=== PATIENT | female | born 1970 | race Caucasian/White ===

== ENCOUNTER 2018-01-16 14:14 | Emergency (ER) | payer BC, OTHER ==
[2018-01-16 14:38] VITALS: BP 103/65
--- NOTE | 2018-01-16 14:52 | UC ---
Throat Pain/Nasal John HPI - HPI Summary HPI Summary: C/O split in the side of the lips over the last 10 days. Worse last 2 days with lymph node. No fevers. Smokers cough. Some dental pain. - History of Current Complaint Chief Complaint: UCGeneralIllness Stated Complaint: ORAL COMPLAINT,SWOLLEN LYMPH NODES Time Seen by Provider: 01/16/18 14:41 Hx Obtained From: Patient Hx Last Menstrual Period: 12/28/17 ?: No Onset/Duration: Gradual Onset, Worse Since - last 2 days. Severity: Moderate Pain Intensity: 4 Cough: Nonproductive Associated Signs & Symptoms: Positive: Rash - redness with cracking right lateral mouth. Negative: Dysphagia, Hoarseness, Sinus Discomfort, Nasal Discharge, Fever - Allergies/Home Medications Allergies/Adverse Reactions: Allergies Allergy/AdvReac Type Severity Reaction Status Date / Time Penicillins Allergy Unknown Unknown Verified 01/16/18 14:38 Reaction Details codeine AdvReac Intermediate GI Upset Verified 01/16/18 14:38 PMH/Surg Hx/FS Hx/Imm Hx Previously Healthy: Yes - Surgical History Surgical History: Yes Surgery Procedure, Year, and Place: L knee x 2, R knee, Ear tubes 2003 - Family History Known Family History: Positive: Cardiac Disease Negative: Hypertension, Diabetes - Social History Occupation: Employed Full-time Lives: Alone Alcohol Use: Occasionally Substance Use Type: None Smoking Status (MU): Light Every Day Tobacco Smoker Type: Cigarettes Amount Used/How Often: 1/2 ppd Length of Time of Smoking/Using Tobacco: since age 28 Have You Smoked in the Last Year: Yes Cessation Counseling: Patient Advised to Stop Review of Systems Skin: Rash - at the right corner of the mouth ENT: Ear Ache - chronic Respiratory: Cough - occasional non-productive Neurological: Headache - sinus headache Is Patient Immunocompromised?: No All Other Systems Reviewed And Are Negative: Yes Physical Exam Triage Information Reviewed: Yes Appearance: Well-Appearing, No Pain Distress, Well-Nourished Vital Signs: Initial Vital Signs Temp 99.6 F 01/16/18 14:29 Pulse 86 01/16/18 14:29 Resp 16 01/16/18 14:29 BP 103/65 01/16/18 14:29 Pulse Ox 98 01/16/18 14:29 Vital Signs Reviewed: Yes Eyes: Positive: Conjunctiva Clear ENT: Positive: Nasal congestion, Other - erythema with skin cracking on the right corner of the mouth.. Negative: TMs normal - Perforation right ear and tube in left ear. Neck: Positive: Enlarged Nodes @ - shotty submandibular nodes. Respiratory: Positive: Lungs clear Cardiovascular: Positive: Murmur:Sys:Grade _?_/ - 2/6 murmur at the apex and aortic area. Early systolic click aortic area. Musculoskeletal Exam: Normal Neurological Exam: Normal Psychological Exam: Normal Skin Exam: Normal Throat Pain/Nasal Course/Dx - Differential Dx/Diagnosis Differential Diagnosis/HQI/PQRI: Pharyngitis, Tonsillitis, URI Provider Diagnoses: Angular Cheilitis. Allergic rhinitis. Smoking Discharge - Sign-Out/Discharge Documenting (check all that apply): Discharge - Discharge Plan Condition: Stable Disposition: HOME Prescriptions: Ketoconazole 2 % CREAM (NF) [Nizoral 2% CREAM (NF)] 1 applic TOPICAL BID #15 gm Patient Education Materials: Skin Yeast Infection (ED), Allergic Rhinitis (ED) Referrals: Nirali Regalado MD [Primary Care Provider] - Additional Instructions: NEILMED SINUS RINSE: CHECK OUT AT [facility] Saline nasal wash helps with mucous, allergies and congestion. It can be used up to twice a day or only as needed. Use lukewarm tap water. It does not have to be sterilized or distilled water. Do 1/3 on each side and snort out of both nostrils. Repeat the process with 1/6 of the bottle on each side with snorting in between to finish the solution in the bottle Smoking Cessation Tricks. 1. Cut down by 1 cigarette per day every 2-3 days. Write the number of smokes for that day on the calendar. 2. Identify triggers to smoking: after meals, on the phone, in the car, with coffee, on breaks at work, etc. 3. Formulate a plan with a behavior to replace the smoking. Fireballs in the car , doodle pad on the phone, flavored creamer for the coffee, go for a walk after a meal or on break at work. 4. For stress smokes do deep breathing relaxation. Breath deep in through the nose hold the breath in for a few seconds then breath out slowly through the mouth. - Billing Disposition and Condition Condition: STABLE Disposition: HOME
== END 2018-01-16 15:20 | disposition home or self-care (01) ==
LOC: UCCORT 14:14
DX: K13.0 Diseases of lips (principal); J30.9 Allergic rhinitis, unspecified; F17.210 Nicotine dependence, cigarettes, uncomplicated; Z88.5 Allergy status to narcotic agent; Z88.0 Allergy status to penicillin
CPT/HCPCS: 99212; G0463